=== PATIENT | female | born 1960 | race Caucasian/White ===

== ENCOUNTER → 2018-12-03 | Outpatient (CLI) | payer OTHER ==
[~2018-12-03] MED LIST: DULO30CA2 PO; ESTR0.3T PO; ESZO1TAB8 PO; FEXO180T81 PO; FLUT9.9S NS; IBUP200T44 PO; LEVO50TA PO; MELA3TAB2 PO; OMEP20TA63 PO
--- NOTE | 2018-12-04 03:42 | PAIN ---
DATE OF SERVICE: 12/03/2018 INITIAL CONSULTATION FOR PAIN CLINIC CHIEF COMPLAINT: Low back and right lower extremity pain. SECONDARY COMPLAINT: Neck and right upper extremity pain. HISTORY OF PRESENT ILLNESS: This is a 58-year-old female who presents with history of pain for about 2 years, increasing in the low back, right lower extremity as well as the neck and right shoulder and arm. The patient reports her chief complaint is low back and right leg; however, the patient reports has been getting worse with time. No specific injury or action that she is aware of. This is getting worse gradually over time. The patient reports it keeps her up from sleep at night but at least twice a night, does not affect her bowel or bladder control, does affect her ability to walk or stand for more than about 10-15 minutes and she is aware shifting sides standing on to the right or to the left side as she tried to get the pain off of the right. The patient reports this is true with sitting for more than about 30 minutes or traveling in the car. The patient has had physical therapy with dry needling in the neck and shoulder on the right side as well as some stretching and strengthening exercises, traction on the neck, in the low back without significant improvement with the low back but some with the neck. The patient tried tramadol, which does help to a moderate extent and takes Motrin, which does not help significantly. The patient describes the pain as constant, throbbing, shooting, radiating in the low back, right leg, posterior gluteus, posterior lateral thigh, lateral anterior thigh, anterior medial thigh, lateral thigh and into the neck and shoulder in the right side, mostly posterior in the shoulder and into the lateral aspect of the deltoid and in the biceps at times as well. The patient reports no loss of motor function with significant fatigability with tilt to the right upper extremity, withdrawing or writing with her right hand as well as with walking, standing with the back and leg. The patient rates her disability from 0-10, 10 being the worst, is a 6 with family and home responsibilities and occupation, 8 with recreation, 3 with social activities, 7 with sexual behavior and 0 with self-care, 0 with life support activities. The patient did have MRI scan dated 10/2017 of both the lumbar and cervical spine showing some degenerative change at C5-C6, C6-C7 with some protrusion at C5-C6, more to the right than the left as well as protrusion more on the left than the right at C6-C7 and lumbar spine shows degenerative change and moderate foraminal narrowing on the right at L4-L5. PAST MEDICAL HISTORY: Significant for hearing loss; cigarette smoking, quit 30 years ago; dizziness; headaches; arthritis and hidradenitis. PAST SURGICAL HISTORY: Previous surgeries include breast reduction in 2004, hysterectomy in 2006, appendectomy in age 50 and a previous cholecystectomy. CURRENT MEDICATIONS: Include Cymbalta, Lunesta, estrogen, Motrin, melatonin, Flonase, Carlene, Prilosec and tramadol. ALLERGIES: The patient is allergic to TETRACYCLINE. FAMILY HISTORY: Significant for multiple sclerosis as well as ALS. SOCIAL HISTORY: The patient drinks about 2 glasses of wine a month on average. Does not use any illegal, illicit or recreational drugs. Does not smoke, quit many years ago. She is , lives with her spouse. No children, living at home and lives locally in [place], [place]. REVIEW OF SYSTEMS: The patient's review of systems is positive for those items mentioned in history of present illness. All systems reviewed and otherwise negative. It is complete, full and well documented on the patient's chart. PHYSICAL EXAMINATION: VITAL SIGNS: The patient's blood pressure is 111/72, pulse 91, respirations 16 and temperature 97.9 degrees Fahrenheit. Height is 5 feet 8 inches and weight is 196 pounds. GENERAL: The patient is awake, alert, oriented, appropriate and very pleasant demeanor. HEENT: Head shows normocephalic and atraumatic. Extraocular movements are intact and symmetrical. Oral cavity: Mucous membranes moist and pink. Dentition is intact. NECK: Shows anterior throat supple without palpable lymphadenopathy noted. Swallow reflex symmetrical. CHEST: Shows normal with inspection. Breath sounds clear to auscultation bilaterally. HEART: Shows S1 and S2 clear. No murmurs auscultated. ABDOMEN: Soft, nontender and nondistended. No palpable organomegaly is noted. No rebound or guarding demonstrated. BACK: Shows spine grossly in the midline, normal-appearing cervical lordotic curvature as well as thoracic kyphotic curvature and lumbar lordotic curvature. No previous surgical scars noted. Cervical paraspinous muscle shows symmetrical on inspection, on palpation shows some moderate tenderness, more on the right than the left and the inferior aspect of the cervical paraspinous muscles as well as superior medial and lateral trapezius but without specific trigger points, without significant atrophy, hypertrophy or asymmetry compared to the left. The patient's lumbar paraspinous muscle shows symmetrical on inspection, with some palpation shows some moderate tenderness diffusely in the middle and lower distribution, more on the right than the left, again without asymmetry or trigger points. The patient has good rotational motion of the cervical and lumbar spines, both laterally as well as extension and flexion without significant increase in pain. EXTREMITIES: Upper extremities show deep tendon reflexes 2+ in the biceps and triceps tendons. Motor exam is strong with [employer] leader strength rated at 5/5 as is bicep and tricep flexion are intact. Peripheral pulses are 2+ radial distribution. Lower extremities show deep tendon reflexes 2+ in the patellar, 1+ in tendo-calcaneus tendons. Motor exam is strong with 5/5 dorsiflexion, extension, quadriceps and hamstring flexion symmetrical. Peripheral pulses are 1+ posterior tibial. No peripheral edema is noted. The patient has some moderate pain with quadriceps flexion on the right and resistance, which causes the loss of strength on the right side, but not on the left. The patient is able to stand, stand on her toes without significant difficulty or loss of balance, walks with a normal appearing gait, does not appear to favor the right or left lower extremity significantly for short distance in the office today. SKIN: The patient's skin shows warm and dry, good turgor. No edema, sores, rashes or bruising. IMPRESSION: 1. This is a 58-year-old female with a long history of about 2 years low back and right lower extremity pain and also neck and right upper extremity pain, both in a radicular fashion, the right following an L4-L5 dermatomal distribution in the lower back and the cervical following a C5-C6, C6-C7 dermatomal distribution on the right. 2. Arthritis. 3. Hearing loss. PLAN: Options were discussed with the patient including conservative medical management, continued physical therapy, interventional techniques. She would like to pursue interventional techniques. We discussed a lumbar epidural steroid injection using description as well as anatomical models to describe the procedure and she would like to proceed. The patient will wait for preauthorization with her insurance provider and we will have her return once this is authorized for lumbar epidural steroid injection at that time. We discussed potential Cervical epidural steroid injection in the future, but her chief complaint is low back and right leg and she would like to start treatment with this first. KATHRYN ALEJANDRE MD DR: TAZ/jenny JOB#: [id number] / [id number]
== END | disposition home or self-care (01) ==
LOC: PNCL 13:45
PROVIDERS: ATTEND Anesthesiology
DX: M54.5 Low back pain (principal); M79.604 Pain in right leg; M54.2 Cervicalgia; M79.601 Pain in right arm; M19.90 Unspecified osteoarthritis, unspecified site; H91.90 Unspecified hearing loss, unspecified ear; Z90.49 Acquired absence of other specified parts of digestive tract; Z90.710 Acquired absence of both cervix and uterus; Z88.8 Allergy status to other drugs, medicaments and biological substances; Z87.891 Personal history of nicotine dependence
CPT/HCPCS: G0463

== ENCOUNTER → 2019-01-13 | Outpatient (CLI) | payer OTHER ==
--- NOTE | 2019-01-14 05:25 | PAIN ---
DATE OF SERVICE: 01/13/2019 PAIN CLINIC PROGRESS NOTE DIAGNOSIS: Lumbar radiculopathy with lumbar degenerative disk disease. HISTORY OF PRESENT ILLNESS: The patient is a 58-year-old female who returns for followup status post lumbar epidural steroid injection x 1. The patient reports 90% improvement after the injection. She reports the pain is almost gone, it is in the low back and the right hip and posterior gluteus, but only very minimal. The patient reports it is a 1 on a scale of 10 at its worst, on average it is 1, 0 at its least, and 0 today. The patient reports it is aching and dull, but very minimal. She has been increasing her activity with walking, doing greater distance walking, doing household activities, walking activities, household activities, transportation and traveling with much greater ease and comfort. The patient reports no new motor or sensory deficits. It does not awaken her from sleep at night, is quite pleased with her progress thus far. She has been increasing her activity exponentially and the patient reports that people around her notice that she walks without a limp. PHYSICAL EXAMINATION: VITAL SIGNS: The patient's blood pressure 111/67, pulse 90, respirations 16, temperature 97.9 degrees Fahrenheit, height is 5 feet 8 inches and weight is 193 pounds. GENERAL: The patient is awake, alert, oriented, appropriate, very pleasant demeanor. HEENT: Shows normocephalic, atraumatic. Extraocular movements are intact AND symmetrical. Oral cavity: Mucous membranes moist and pink. Dentition is intact. NECK: Shows anterior throat supple without palpable lymphadenopathy noted. Swallow reflex symmetrical. CHEST: Shows normal on inspection. Breath sounds are clear bilaterally. HEART: Shows S1, S2 clear. ABDOMEN: Soft, nontender, nondistended. BACK: Shows spine grossly in the midline. Lumbar paraspinous muscle shows symmetrical on inspection, on palpation shows some moderate tenderness, but only diffusely bilaterally. The patient has full rotational motion of lumbar spine, both laterally as well as extension and flexion without difficulty. EXTREMITIES: Lower extremities show deep tendon reflexes at 2+ in the patellar, 1+ tendo-calcaneus tendons. Motor exam is strong with 5/5 dorsiflexion, extension, quadriceps and hamstring flexion equal. Peripheral pulses are 1+ posterior tibia. No peripheral edema is noted. PLAN: Options were discussed with the patient. The patient's old chart was reviewed as her current medication regimen updated. Current review of systems updated today as well. We will hold on any further injections currently, but we will preauthorize her for a second lumbar epidural steroid injection. She is doing quite well. She still has a small amount of pain in the low back and right lower extremity in a radicular fashion following at L4-L5 dermatomal distribution, but at this time, I encouraged her to increase her activity as tolerated. The patient will follow up in approximately 3 weeks as scheduled for potential second lumbar epidural steroid injection at that time. KATHRYN ALEJANDRE MD DR: TAZ/jenny JOB#: [id number] / [id number]
== END | disposition home or self-care (01) ==
LOC: PNCL 13:43
PROVIDERS: ATTEND Anesthesiology
DX: M51.16 Intervertebral disc disorders with radiculopathy, lumbar region (principal)
CPT/HCPCS: G0463

== ENCOUNTER → 2019-02-24 | Outpatient (CLI) | payer OTHER ==
[~2019-02-24] MED LIST changes: +IOHEXOL 180 MG/ML 10 ML VIAL. ONE; -MELA3TAB2 PO; +MELA3TAB56 PO; +methylPREDNISolone ACETATE 40 MG/ML VIAL. ONE; +methylPREDNISolone ACETATE 80 MG/ML VIAL. ONE
--- NOTE | 2019-02-24 21:23 | PAIN ---
DATE OF SERVICE: 02/24/2019 DIAGNOSES: 1. Lumbar radiculopathy with lumbar degenerative disk disease. 2. Cervical radiculopathy with cervical degenerative disk disease. HISTORY OF PRESENT ILLNESS: The patient is a 58-year-old female who returns for followup status post lumbar epidural steroid injection x 1. The patient had about 90% improvement initially. The pain is returning now to almost to baseline in the low back and right lower extremity, mostly in the posterior gluteus, posterolateral thigh, lateral anterior thigh and medial lower leg as well as posterior lower leg. The patient reports it is aching, sharp, shooting, burning, on and off in intensity, worse with walking, standing, better with sitting or lying down, but does awaken him from sleep about every 6-7 hours. The patient reports the pain is 7 on a scale of 10 at its worst over the past week, 5 on average and 3 at its least and is a 5 today. The patient reports no new motor or sensory deficits, no new bowel or bladder incontinence or other complaints. PHYSICAL EXAMINATION: VITAL SIGNS: The patient's blood pressure is 122/76, pulse 80, respirations 18, temperature 97.8 degrees Fahrenheit, height is 5 feet 8 inches, weight is 198 pounds. GENERAL: The patient is awake, alert, oriented, appropriate, very pleasant demeanor. HEENT: Head shows normocephalic, atraumatic. Extraocular movements are intact and symmetrical. Oral cavity: Mucous membranes moist and pink. Dentition is intact. NECK: Shows anterior throat supple without palpable lymphadenopathy noted. Swallow reflex symmetrical. CHEST: Shows normal on inspection. Breath sounds clear to auscultation bilaterally. HEART: Shows S1, S2 clear. No murmurs auscultated. BACK: Shows spine grossly in the midline. Normal appearing thoracic kyphosis, some minor flattening of lumbar lordotic curvature. Lumbar paraspinous muscle shows symmetrical on inspection, on palpation shows some moderate tenderness diffusely bilaterally, but only diffusely without radiation. EXTREMITIES: The patient's lower extremities show deep tendon reflexes at 2+ in the patellar, 1+ tendo-calcaneus tendons. Motor exam is strong with 5/5 dorsiflexion, extension, quadriceps and hamstring flexion and symmetrical. Peripheral pulses are 1+ posterior tibia. No peripheral edema is noted bilaterally. Options were discussed with the patient. The patient's old chart was reviewed as her current medication regimen updated. Current review of systems updated today as well. We will proceed with a second in the series of lumbar epidural steroid injection today with fluoroscopic guidance. Risks were again discussed including, but not limited to bleeding, infection, possibility of epidural hematoma, subsequent neurological compromise, dural puncture, headaches, spinal cord and/or nerve damage, side effects of steroid medication and poor results regarding pain control. The patient understands and wished to proceed. The patient will return to clinic in approximately 2 weeks for followup. She was counseled on return appointment, activity level and side effects to be aware of. DIAGNOSIS: Lumbar radiculopathy with lumbar degenerative disk disease. PROCEDURE: Lumbar epidural steroid injection, translaminar approach L4-L5 level using C-arm fluoroscopic guidance under sterile prep and drape using local anesthetic. MEDICATION INJECTED: The patient received a total of 120 mg Depo-Medrol plus 10 mL of preservative-free normal saline and 2 mL of contrast. CONDITION AT DISCHARGE: Stable. The patient tolerated procedure well, had no complications. KATHRYN ALEJANDRE MD DR: TAZ/jenny JOB#: [id number] / [id number]
== END ==
LOC: PNCL 12:57
PROVIDERS: ATTEND Anesthesiology
DX: M51.16 Intervertebral disc disorders with radiculopathy, lumbar region (principal); M50.10 Cervical disc disorder with radiculopathy, unspecified cervical region
CPT/HCPCS: 62323; J1030; J1040; Q9965

== ENCOUNTER → 2019-05-05 | Outpatient (CLI) | payer OTHER ==
[~2019-05-05] MED LIST changes: +TOPI25TA52 PO; +TRAM50TA PO
--- NOTE | 2019-05-05 13:53 | PAIN ---
DATE OF SERVICE: 05/05/2019 PROGRESS NOTE FOR PAIN CLINIC DIAGNOSES: 1. Lumbar radiculopathy with lumbar degenerative disk disease. 2. Cervical radiculopathy with cervical degenerative disk disease. HISTORY OF PRESENT ILLNESS: The patient is a 59-year-old female who returns for followup status post lumbar epidural steroid injections x 2. The patient reports about 75% improvement, currently helping, still she has been increasing distance walking, doing work activities, household activities with greater ease and comfort, traveling with greater ease as well. The patient reports some pain in the base of the neck on the right side as well as the low back and right lower extremity, posterior gluteus, posterolateral thigh, lateral anterior thigh, anterior medial thigh on the right side only. The patient reports it is aching and dull in the leg and the back, described as a 3 on a scale of 10 at its worst over the past week, 3 on average, 2 at its least and is a 2 today. The patient reports no new motor or sensory deficits. Reports she has been sleeping well at night, occasionally wakes her from sleep but very rarely. No new changes. PHYSICAL EXAMINATION: VITAL SIGNS: The patient's blood pressure is 109/77, pulse 81, respirations 16, temperature 97.6 degrees Fahrenheit, height is 5 feet 8 inches, weight is 198 pounds. GENERAL: The patient is awake, alert, oriented, appropriate, very pleasant demeanor. HEENT: Shows normocephalic, atraumatic. Extraocular movements are intact and symmetrical. Oral cavity: Mucous membranes moist and pink. Dentition is intact. NECK: Shows anterior throat supple without palpable lymphadenopathy noted. Swallow reflex symmetrical. CHEST: Shows normal on inspection. Breath sounds are clear bilaterally. HEART: Shows S1, S2 clear. No murmurs auscultated. ABDOMEN: Soft, nontender, nondistended. No palpable organomegaly is noted. No rebound or guarding demonstrated. BACK: Shows spine grossly in the midline. Normal appearing thoracic kyphosis, some minor flattening of lumbar lordotic curvature. Lumbar paraspinous muscle shows symmetrical on inspection, on palpation shows some moderate tenderness diffusely bilaterally, but only diffusely without radiation. EXTREMITIES: The patient's lower extremities show deep tendon reflexes 2+ in the patellar, 1+ tendo-calcaneus tendons. Motor exam is strong with 5/5 dorsiflexion, extension, quadriceps and hamstring flexion and symmetrical. Peripheral pulses are 1+ posterior tibia. No peripheral edema is noted bilaterally. Options were discussed with the patient. The patient's old chart was reviewed as her current medication regimen updated. Current review of systems updated today as well. We will proceed with a third in the series of lumbar epidural steroid injection today with fluoroscopic guidance. Risks were again discussed including, but not limited to bleeding, infection, possibility of epidural hematoma, subsequent neurological compromise, dural puncture, headaches, spinal cord and/or nerve damage, side effects of steroid medication and poor results regarding pain control. The patient understands and wished to proceed. The patient will return to clinic in approximately 2 weeks for followup. She was counseled on return appointment, activity level and side effects to be aware of. DIAGNOSES: Lumbar radiculopathy with lumbar degenerative disk disease. PROCEDURE: Lumbar epidural steroid injection, translaminar approach at L4-L5 level using C-arm fluoroscopic guidance under sterile prep and drape using local anesthetic. MEDICATION INJECTED: A total of 120 mg Depo-Medrol plus 10 mL of preservative-free normal saline and 2 mL of contrast. CONDITION AT DISCHARGE: Stable. The patient tolerated procedure well, had no complications. KATHRYN ALEJANDRE MD DR: TAZ/nts JOB#: [id number] / [id number]
== END ==
LOC: PNCL 11:17
PROVIDERS: ATTEND Anesthesiology
DX: M51.16 Intervertebral disc disorders with radiculopathy, lumbar region (principal); M50.10 Cervical disc disorder with radiculopathy, unspecified cervical region
CPT/HCPCS: 62323; J1030; J1040; Q9965

== ENCOUNTER → 2019-08-13 | Day surgery (SDC) | payer OTHER ==
[~2019-08-13] MED LIST changes: -IOHEXOL 180 MG/ML 10 ML VIAL. ONE; +IV RINGERS,LACTATED 1000ML 1,000 ML IV SCH; +LIDOCAINE 2% PF 5 ML VIAL. ONE; +MELA3TAB4 PO; -MELA3TAB56 PO; +PROPOFOL 40 ML IV ONE; -methylPREDNISolone ACETATE 40 MG/ML VIAL. ONE; -methylPREDNISolone ACETATE 80 MG/ML VIAL. ONE
[2019-08-13 08:29] VITALS: BP 139/83
--- NOTE | 2019-08-13 10:00 | HP ---
ADMIT DATE: 08/13/2019 REFERRING PHYSICIAN: Dallin Gama DO REASON FOR ADMISSION: Dysphagia and colorectal screening. HISTORY OF PRESENT ILLNESS: A 59-year-old female with past medical history significant for hypothyroidism, gastroesophageal reflux disease, seen with recurrent dysphagia with impaction lasting up to an hour. Prilosec 20 mg daily does help with nocturnal reflux. Weight and appetite are stable. She also requests colorectal screening. Last exam being approximately 10 years ago. There has been no change in bowel habits. No diarrhea, constipation, or bleeding. No family history of colon cancer is present. She is otherwise without additional complaints. Also, has recovered from recent attack of diverticulitis. PAST MEDICAL HISTORY: Diverticulitis, GERD, hypertension, hypothyroidism. ALLERGIES: TETRACYCLINE. MEDICATIONS: Include Cymbalta, Lunesta, Flonase, Motrin, levothyroxine, melatonin, omeprazole, Topamax and tramadol. FAMILY AND SOCIAL HISTORY: There is a history of colon polyps with her father, hypertension with her mother, LA with her father, CVA with her grandmother. She is a nonsmoker, social drinker. Family history is otherwise noncontributory. She is 4, para 2. PAST SURGICAL HISTORY: She has had hysterectomy, appendectomy, cholecystectomy, breast reduction. REVIEW OF SYSTEMS: Per records. PHYSICAL EXAMINATION: GENERAL: Reveals a well-nourished, well-developed female. VITAL SIGNS: Temperature is 97.6, pulse 118, respirations 20. LUNGS: Clear. CARDIOVASCULAR: Reveals an S1, S2 without S3, S4 or appreciable murmur. ABDOMEN: Reveals a soft abdomen, normal bowel sounds, without appreciable hepatosplenomegaly. EXTREMITIES: Reveals no cyanosis, clubbing or edema. IMPRESSION: 1. Dysphagia, most likely secondary to Schatzki's ring. Differential includes achalasia, De La Torre's, malignancy, eosinophilic esophagitis. Therefore, recommend upper endoscopy with possible biopsy and dilatation. Risks and benefits have been discussed with the patient including risk of perforation and willing to proceed. 2. Colorectal screening is recommended at this time, the patient is willing to proceed. CANDICE SANDOVAL MD DR: DILLAN/jenny JOB#: [id number] / [id number]
== END | disposition home or self-care (01) ==
LOC: ENDOS 06:26
PROVIDERS: ATTEND Internal Medicine Gastroenterology
DX: Z12.11 Encounter for screening for malignant neoplasm of colon (principal); K57.30 Diverticulosis of large intestine without perforation or abscess without bleeding; K22.2 Esophageal obstruction; K64.0 First degree hemorrhoids; K21.9 Gastro-esophageal reflux disease without esophagitis; E03.9 Hypothyroidism, unspecified; I10 Essential (primary) hypertension; Z88.6 Allergy status to analgesic agent; Z90.710 Acquired absence of both cervix and uterus; Z90.49 Acquired absence of other specified parts of digestive tract
CPT/HCPCS: 43235; 43450; 45378; J2001; J2704